=== PATIENT | male | born 1970 | race Caucasian/White ===

== ENCOUNTER → 2023-10-30 13:53 | Outpatient (REF) | payer OTHER, SELFPAY ==
--- NOTE | 2023-10-30 13:59 | CA_ITS ---
Transthoracic Echocardiogram Patient (Last, First, Middle): Andrea Garcia, Gender: Male Date of : 1970 Age: 53 Procedure Date: 10/30/2023 Procedure Type: Transthoracic Echocardiogram Location: OP Height: 167.64 cm Weight: 83.92 kg BSA: 1.93 m2 Heart Rate: 72 bpm BP: 122 / 65 mmHg Cloth Inspector: CARMELO Referring MD: Julia Egan DO Squad Leader: Bill Nina MD Symptoms: I48.91 SUPRAVENTRICULAR HEART BEAT PREMATURE, PRECORDIAL PAIN R07.2 Study Quality: Adequate ECG Rhythm: Frequent ventricular premature beats Conclusions: - Essentially normal study Findings Left Ventricle Normal left ventricular size, thickness, and systolic function. The visually estimated ejection fraction is between 55-60%. Spectral Doppler is indicative of a normal filling pattern. Peak GLS is -19.0%, within normal limits. Right Ventricle Normal right ventricular cavity size and systolic function. Atria Both atria are normal in size. There is no evidence of interatrial shunt. Aortic Valve Normal aortic valve structure and function. There is no aortic valve stenosis. There is no aortic valve regurgitation. Mitral Valve Normal mitral valve structure and function. There is trace mitral valve regurgitation. There is no mitral valve stenosis. Pulmonic Valve The pulmonic valve is likely normal. There is trace pulmonic valve regurgitation. Tricuspid Valve Normal tricuspid valve structure. Tricuspid regurgitation envelope is inadequate for calculation of right ventricular systolic pressure. Normal right atrial pressure. Great Vessels All visible segments of the aorta are normal in size. The pulmonary artery was not well visualized. Venous The inferior vena cava is normal in size and collapses greater than 50% with inspiration. Pericardium/Pleural There is no evidence of pericardial effusion. Prior Study Comparison No prior study available for comparison. Measurements 2D Linear Measurements IVSd: 1.09 0.6-0.9/0.6-1.0 cm LVIDd: 4.79 3.9-5.3/4.2-5.9 cm LVIDd Index: 2.48 2.4-3.2/2.2-3.1 cm/m2 LVIDs: 2.63 2.0-3.6 cm LVPWd: 0.94 0.7-1.1 cm LA Diam: 4.00 2.7-3.8/3.0-4.0 cm LAIDs Index: 2.07 1.5-2.3 cm/m2 LV Mass: 215.75 67-162/88-224 g LV Mass Index: 111.79 43-95/49-115 g/m2 LVOT Diam: 2.20 3.0+(-)1.3 cm 2D Systolic Function EF 4C: 58.30 >55% EF 2C: 58.60 >55% EF BiP: 58.50 >55% Mitral Valve MV Pk E: 0.86 MV PK A: 0.67 MV Decel Time: 123.00 E/A: 1.30 E'Lateral: 12.90 E'Medial: 10.10 E/E' Med: 8.50 E/E' Lat: 6.70 PHT: 36.00 MVA PHT: 6.11 Decel Sampson: 6.99 Aortic Valve AoV Pk Jesus: 1.21 AoV Mn Jesus: 0.87 AoV VTI: 0.25 AoV Pk Grad: 6.00 Aov Mn Grad: 3.00 DIANA Cont.VTI: 2.79 LVOT LVOT Pk Jesus: 0.88 LVOT Mn Jesus: 0.63 LVOT VTI: 0.18 LVOT Pk Grad: 3.00 LVOT Mn Grad: 2.00 LVOT Diam: 2.20 LVOT Area: 3.80 Diastolic Function MV Pk E: 0.86 MV Pk A: 0.67 E/A: 1.30 E'Medial: 10.10 E/E' Med: 8.50 E' Laterial: 12.90 E/E' Lat: 6.70 Right Ventricle TAPSE (mm): 30.00 TVS' Jesus: 13.20 Tricuspid Valve RA Press: 3.00 Great Vessels Aorta Sinus of Valsalva: 3.20 2.0-3.5 cm Ao Asc: 3.30 2.1-3.4 cm Pulmonary Valve PV Pk Jesus: 0.92 Peak PV Grad: 3.00 Updated in Other Vendor System with Status of Final Bill Nina MD electronically signed on 10/30/2023 4:49:43 PM with status of Final
== END ==
LOC: HO.CARD 13:53
PROVIDERS: Visit Provider Family Medicine
DX: R07.2 Precordial pain (principal); I49.1 Atrial premature depolarization
CPT/HCPCS: 93306; 93356

== ENCOUNTER → 2023-10-30 13:59 | Outpatient (BNV) | payer OTHER, SELFPAY | PROVIDERS: Visit Provider Internal Medicine Cardiovascular Disease | DX: I48.91 Unspecified atrial fibrillation (principal) | CPT/HCPCS: 93306; 93356 ==

== ENCOUNTER → 2024-01-01 10:17 | Outpatient (REF) | payer OTHER, SELFPAY ==
--- NOTE | 2024-01-01 10:20 | HM_ITS ---
* Total monitoring time 1 day. * Underlying rhythm is sinus. Average ventricular rate 75/Min. * Frequent supraventricular ectopy with a burden of 9.3%. * Rare ventricular ectopy. * No significant pauses or AV blocks. * No patient markers. * Diary not submitted. MTDD
== END ==
LOC: HO.CARD 10:17
PROVIDERS: Visit Provider Family Medicine
DX: I49.1 Atrial premature depolarization (principal)
CPT/HCPCS: 93225

== ENCOUNTER → 2024-01-01 10:20 | Outpatient (BNV) | payer OTHER, SELFPAY | PROVIDERS: Visit Provider Internal Medicine | DX: I47.10 Supraventricular tachycardia, unspecified (principal) | CPT/HCPCS: 93227 ==

== ENCOUNTER 2024-01-30 12:41 | Outpatient (AMB) | payer OTHER, SELFPAY ==
--- NOTE | 2024-01-30 12:50 | A.OFFVIS_ITS ---
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 He is a pleasant 53-year-old male who about couple months ago started developing left-sided chest pain which she describes as sharp discomfort radiating left arm. He said he has difficulty moving his left arm. Symptoms usually happen at the end of the shift, he works septal to a.m. at a [employer]. Says symptoms could be related to stress. Symptoms last for few minutes. Symptoms have continued to happen but more intense couple months ago. At that time was diagnose with hypertension started on lisinopril therapy. Despite antihypertensive therapy continues to have symptoms. Symptoms are not clearly exertional in nature. He also had end of the shift sats noticing fluttering in the chest. That had led to further workup. He was noted to have irregular pulse during office visit and subsequently had a Holter monitor which are frequent PACs about 9.3% burden. No other significant arrhythmias. Echocardiogram at shown normal structure of the heart. He comes for further evaluation of the symptoms and findings of test results. He denies any shortness of breath. He has family history of cardiovascular issues in his dad. [facility] Medical History PAC (premature atrial contraction) HTN (hypertension) Family History Father No problems noted. Social History Household Members: Spouse Alcohol intake: never Patient Tobacco Use Status: Never used Tobacco Review of Systems Const Denies chills, Denies fatigue, Denies fever(s), Denies frequent falls, Denies weakness, Denies weight gain and Denies weight loss ENT Denies dizziness Card Denies chest pain, Denies leg edema, Denies lightheadedness, Denies palpitations, Denies dyspnea, Denies dyspnea on exertion and Denies orthopnea Resp Denies cough, Denies dyspnea and Denies dyspnea on exertion GI Denies bloating and Denies change in bowel habits Musc Denies muscle weakness, Denies numbness and Denies tingling Neuro Denies dizziness, Denies frequent falls, Denies numbness, Denies tingling and Denies weakness Endo Denies fatigue and Denies palpitations Physical Exam Vital Signs: Last Vital Signs Pulse 81 01/30/24 12:52 BP 110/70 01/30/24 12:52 BMI result Body Mass Index 29.2 Const General: cooperative, comfortable, no acute distress, alert, awake and Physically active Nutritional Appearance: average body habitus Orientation/consciousness: patient oriented x3 Limitations: no limitations HEENT Head: Yes normocephalic and Yes atraumatic Neck Neck: Yes trachea midline, Yes supple and Yes no JVD Resp Effort & Inspection: normal respiratory effort Auscultation: clear to auscultation bilaterally Cardio Jugular venous distension: no JVD Rate: regular rate Rhythm: abnormal rhythm with ectopic beats Heart sounds: S1 normal heart sound present, S2 normal heart sound present, no click, no gallops, no murmurs and no rubs GI Auscultation: normal bowel sounds Skin General skin exam: no rashes or lesions noted Neuro General: patient oriented x3 and no focal motor deficits Extrem General: Yes no clubbing, cyanosis or edema Psych Appearance: grossly normal Office Procedures EKG Details: EKG shows normal sinus rhythm with PACs [id number], Complete Assessment & Plan Assessment & Plan (1) Atypical chest pain: Code(s): R07.89 - Other chest pain Category: Medical Plan: Atypical chest pain in this middle-aged man with risk factor of hypertension family history. Unknown lipid status. Will obtain a left from your office. Symptoms happen with stress. Could represent myocardial ischemia. This is suggest a treadmill stress test to evaluate for myocardial ischemia. Further workup and management based on the findings. He understands management well. (2) HTN (hypertension): Code(s): I10 - Essential (primary) hypertension Category: Medical Plan: Hypertension recently diagnose, currently on lisinopril therapy. Blood pressure is well optimized on lisinopril. Continue the. Importance of blood pressure control was discussed. Advised to blood pressure at home maintain a log. Goal blood pressure closer to 120/80. Low-salt diet was discussed. Maintain heart healthy lifestyle. If his stress test is negative, would pursue coronary calcium score for screening for coronary atherosclerosis. He understands and agrees. (3) PAC (premature atrial contraction): Code(s): I49.1 - Atrial premature depolarization Category: Medical Plan: Frequent PACs. We discussed pathophysiology of PACs. He does drink a lot of soda with caffeine. Advised to reduce his caffeine intake and participate in stress mitigation strategies. If despite that he continues to have continue symptoms can consider beta-yvonne therapy. Risk of development of atrial fibrillation in the future was discussed. He understands agrees. Follow up in the clinic in 2 months time. Orders: Orders CT Coronary Calcium Score 6 Weeks I10 - Essential (primary) hypertension CA stress test Today R07.89 - Other chest pain Coding Level of Care Code New Pt Level 4 (69723) Diagnoses Atypical chest pain R07.89 HTN (hypertension) I10 PAC (premature atrial contraction) I49.1 CPT Codes EKG - CPT: [id number], Complete ([id number])
[2024-01-30 12:52] VITALS: BP 110/70; PULSE 81; BMI 29.2
== END 2024-01-30 13:22 | disposition home or self-care (01) ==
PROVIDERS: PCP Family Medicine; Visit Provider Internal Medicine Cardiovascular Disease
DX: I10 Essential (primary) hypertension (principal); I49.1 Atrial premature depolarization; R07.89 Other chest pain
CPT/HCPCS: 93010; 99214

== ENCOUNTER → 2024-01-30 12:41 | Outpatient (BNVA) | payer OTHER, SELFPAY | PROVIDERS: PCP Family Medicine; Visit Provider Internal Medicine Cardiovascular Disease | DX: R07.89 Other chest pain (principal); I10 Essential (primary) hypertension; I49.1 Atrial premature depolarization | CPT/HCPCS: 93005 ==

== ENCOUNTER → 2024-02-09 09:14 | Outpatient (REF) | payer OTHER, SELFPAY ==
--- NOTE | 2024-02-09 09:16 | CA_ITS ---
Acquisition Time: 2024-02-09 09:26:33 Total Exercise Time: 00:10:27 Test Indications: CHEST PAIN Medications: Protocol: DIMITRY Max HR: 139 BPM 82% of Pred: 168 BPM Max BP: 154/086 mmHG Max Work Load: 10.4 METS Exericse stress test exercise 10 min 27 sec of Dimitry protocol (stage 3 held, manually increase) 83% MPHR,with request to stop due to back pain and couldnt go faster, with mild SOB, no chest discomfort, with isdolated PACs and PVCs, with normotensive response to exercise, without EKG changes. Test reviewed with Dr. Diaz. Referred By: Bill Nina Overread By: Zamzam Ferro
== END ==
LOC: HO.CARD 09:14
PROVIDERS: PCP Family Medicine; Visit Provider Internal Medicine Cardiovascular Disease
DX: R07.89 Other chest pain (principal)
CPT/HCPCS: 93017

== ENCOUNTER → 2024-02-09 09:16 | Outpatient (BNV) | payer OTHER, SELFPAY | PROVIDERS: PCP Family Medicine; Visit Provider Nurse Practitioner | DX: R06.02 Shortness of breath (principal); I49.1 Atrial premature depolarization; I49.3 Ventricular premature depolarization | CPT/HCPCS: 93016; 93018 ==

== ENCOUNTER 2024-04-15 14:19 | Outpatient (AMB) | payer OTHER, SELFPAY ==
[2024-04-15 14:26] VITALS: BP 120/68; PULSE 78; BMI 28.8
--- NOTE | 2024-04-15 14:26 | A.OFFVIS_ITS ---
Vital Signs 04/15/24 14:26 Height 5 ft 6 in Weight 178 lb 9.191 oz BMI 28.8 BP 120/68 Blood Pressure Location Lt brachial Position Sitting Pulse 78 Pulse Source Pulse Oximeter Intake Visit Reasons: s/p ett ? calcium score if ordered Allergies latex Allergy (Severe, Verified 01/30/24 12:53) Hives Medication List - Last Reconciled 04/15/24 by Bill Nina MD albuterol sulfate ER 4 mg PO Q12H lisinopril 10 mg PO DAILY HPI Comments Details: Andrea comes for follow-up after testing. He was stress test at high workload was without any significant arrhythmias. Did have isolated PACs and PVCs during the treadmill stress test. EKG was negative for ischemia. Subsequently underwent a coronary calcium score which shows a low coronary calcium score at 1.9 in the RCA distribution. He is taking his medications. Last LDL of 98 mg/dL with normal CRP. [facility] Medical History PAC (premature atrial contraction) HTN (hypertension) Family History Father No problems noted. Social History Household Members: Spouse Alcohol intake: never Patient Tobacco Use Status: Never used Tobacco Review of Systems Const Denies weakness ENT Denies dizziness Card Denies chest pain, Denies chest pain with activity, Denies syncope, Denies rapid heart rate, Denies pedal edema, Denies edema, Denies leg edema, Denies lightheadedness, Denies palpitations, Denies dyspnea, Denies dyspnea on exertion and Denies orthopnea Resp Denies cough, Denies dyspnea and Denies dyspnea on exertion GI Denies hematochezia and Denies change in stool character Musc Denies abnormal gait, Denies muscle cramps, Denies muscle weakness, Denies numbness, Denies radiating pain into limb and Denies tingling Neuro Denies abnormal gait, Denies dizziness, Denies syncope, Denies numbness, Denies tingling and Denies weakness Endo Denies palpitations Physical Exam Vital Signs: Last Vital Signs Pulse 78 04/15/24 14:26 BP 120/68 04/15/24 14:26 BMI result Body Mass Index 28.8 Const General: cooperative, comfortable, no acute distress, alert, awake and Physically active Nutritional Appearance: average body habitus Orientation/consciousness: patient oriented x3 Limitations: no limitations HEENT Head: Yes normocephalic and Yes atraumatic Neck Neck: Yes trachea midline, Yes supple and Yes no JVD Resp Effort & Inspection: normal respiratory effort Auscultation: clear to auscultation bilaterally Cardio Jugular venous distension: no JVD Rate: regular rate Rhythm: abnormal rhythm with ectopic beats Heart sounds: S1 normal heart sound present, S2 normal heart sound present, no click, no gallops, no murmurs and no rubs GI Auscultation: normal bowel sounds Skin General skin exam: no rashes or lesions noted Neuro General: patient oriented x3 and no focal motor deficits Extrem General: Yes no clubbing, cyanosis or edema Psych Appearance: grossly normal Assessment & Plan Assessment & Plan (1) PAC (premature atrial contraction): Code(s): I49.1 - Atrial premature depolarization Category: Medical Plan: Isolated PACs and PVCs which are symptomatic at this point time although he is not very bothered by symptoms. He gets lightheaded during the daytime when he has these symptoms happening. I have advised him to increase his fluid intake. I would not necessarily pursue pharmacotherapy at this point time. Avoidance of stimulants was discussed. Stress mitigation strategies were discussed. (2) HTN (hypertension): Code(s): I10 - Essential (primary) hypertension Category: Medical Plan: Hypertension with well optimized blood pressure current point time. Minimally elevated coronary calcium which is low risk. This was discussed with him. His LDL and CRP are within acceptable limits. I have advised him to continue to pursue aggressive lifestyle modification. Improving his diet and regular p hysical activity was discussed. I would suggest a repeat coronary calcium score in couple years to see if the significant increase in burden of coronary calcification that would justify aggressive lipid modification as there was no significant benefit with statin therapy at this point in time. This was discussed with him. Will follow up in the clinic in 2 years time, sooner p.r.n.. Thank you for allowing me to partake in his care Coding Level of Care Code Est Pt Level 4 (18197) Complex EM visit Add On G2211 Diagnoses PAC (premature atrial contraction) I49.1 HTN (hypertension) I10
--- OUTSIDE RECORDS SUMMARY | 2024-04-17 16:07 | XMS_ITS ---
Author Organization [facility], [facility] Address [address], [place] [id number] Care Team Providers Care Communications Engineer Name Role Phone CHRISTINE CLARK Primary Care Provider Jacey Hood [phone] ALLERGIES Allergen (clinical drug ingredient) Drug/Non Drug Allergy documented on EMR Reaction Allergy Type Onset Date Status Latex Latex Hives/Rash Allergy Active REASON FOR VISIT f/u 6 mnth check-in SOCIAL HISTORY Tobacco Use: Social History Observation Description Date Details (start date - stop date) Never Smoker NA - NA Sex Assigned At : Social History Observation Description Sex Assigned At Male Household Question Answer Notes Marital status: Number of adults in household: 2 Number of children in household: 2 Tobacco Use/Smoking Question Answer Notes Tobacco use: nonsmoker Section Notes: Lives in [place], [place] with & 2 daughters. Encounters Encounter Location Date Provider Diagnosis [address] [id number] 03/15/2023 Jacey Hood PLAN OF TREATMENT No Information Progress Notes * ODALYS BUNCHDOB:1970 (53 yo M)Acc No.[id number]:03/15/2023 Progress Note Patient:??ODALYS BUNCH Provider:??Jacey Hood DNP :1970?Age:52 Y?Sex:Jayshree mccarthy Date:03/15/2023 Phone: Address:[address], [id number] Pcp:CHRISTINE CLARK Subjective: * Chief Complaints: * ?1. F/u 6 mnth check-in . * HPI: ?Patient Care Team:? Providers/Specialists:. * Medical History:??Asthma, Ki dney stones, Fx Rt. leg, Eczema. 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 * Family History:??Father: manisha ve, Heart disease.??Mother: alive, No known health concerns.??Maternal Grandfather: , Colon CA.??Brother: alive.??Sister: alive.??1 brother(s) , 1 sister(s) - healthy. 2 daughter(s) - healthy. .?? * Social History:?Tobacco Use:??Tobacco Use/Smoking??Tobacco use:??nonsmoker.?Drugs/Alcohol:??Do you smoke marijuana?: Denies. Do you drink alcohol?: No. 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 ?Lives in [place], [place] with & 2 daughters. * Allergies:??Latex: Hives/Gee h - Allergy. Objective: Assessment: Plan: * Treatment: * Preventive Medicine:?Last CPE: Over 10 yrs ago; 07/07/2022 Colonoscopy: Had one in his 40's- [facility] GI Endoscopy: No Covid Vac: Yes Flu Vac: No PV: No. * Billing Information: * Visit Code:?? * Procedure Codes:?? * Sign off status: Pending * Provider:??Jacey Hood DNP Date:??12/2022 History and Physical Notes * HPI (History of Present Illness) Category Sub-Category Detail Notes Category Not es Patient Care Team Providers/ Specialists:
--- OUTSIDE RECORDS SUMMARY | 2024-04-17 16:07 | XMS_ITS ---
Author Organization [facility], [facility] Address [address] [place] [id number] Care Team Providers Care Sandstone Splitter Name Role Phone CHRISTINE CLARK Primary Care Provider [phone] Jacey Hood [phone] REASON FOR VISIT CPE SOCIAL HISTORY Sex Assigned At : Social History Observation Description Sex Assigned At Male Encounters Encounter Location Date Provider Diagnosis [facility], [facility] [address] [facility] [address] [place] [phone] 09/04/2023 Jacey Hood PLAN OF TREATMENT No Information Progress Notes * ODALYS BUNCHDOB:1970 (53 yo M)Acc No.[id number]:09/04/2023 Progress Note Patient:??ODALYS BUNCH Provider:??Jacey Hood DNP :1970?Age:53 Y?Sex:Ma le Date:09/04/2023 Phone: Address:[address] [id number] Pcp:CHRISTINE CLARK Subjective: * Chief Complaints: * ?1. CPE. * Medical History:?? Objective: Assessment: Plan: * Treatment: Care Plan: * Problems:?? * Billing Information: * Visit Code:?? * Procedure Codes:?? * Sign off status: Pending * Provider:??Jacey Hood DNP Date:??
--- OUTSIDE RECORDS SUMMARY | 2024-04-17 16:07 | XMS_ITS ---
Author Organization [facility], [facility] Address [address] [place] [phone] Care Team Providers Care Lead Systems Engineer Name Role Phone CHRISTINE CLARK Primary Care Provider Jacey Hood [phone] REASON FOR VISIT CPE SOCIAL HISTORY Sex Assigned At : Social History Observation Description Sex Assigned At Male Encounters Encounter Location Date Provider Diagnosis [facility], [facility] [address] [facility] [address] [place] [phone] 12/07/2023 Jacey Hood PLAN OF TREATMENT No Information Progress Notes * ODALYS BUNCHDOB:1970 (53 yo M)Acc No.[id number]:12/07/2023 Progress Note Patient:??ODALYS BUNCH Provider:??Jacey Hood DNP :1970?Age:53 Y?Sex:Ma le Date:12/07/2023 Phone: Address:[address] [id number] Pcp:CHRISTINE CLARK Subjective: * Chief Complaints: * ?1. CPE. * Medical History:?? Objective: Assessment: Plan: * Treatment: Care Plan: * Problems:?? * Billing Information: * Visit Code:?? * Procedure Codes:?? * Sign off status: Pending * Provider:??Jacey Hood DNP Date:??05/2023
--- OUTSIDE RECORDS SUMMARY | 2024-04-17 16:07 | XMS_ITS | Patient Health Record ---
Author Organization [facility] Address [address] [place] [id number] Care Team Providers Care Industrial Safety And Health Manager Name Role Phone CHRISTINE CLARK Primary Care Provider Erwin Jacey Unavailable [phone] ALLERGIES Allergen (clinical drug ingredient) Drug/Non Drug Allergy documented on EMR Reaction Allergy Type Onset Date Status Latex Latex Hives/Rash Allergy Active REASON FOR REFERRAL No Information MEDICATIONS Medication SIG (Take, Route, Frequency, Duration) Notes Start Date End Date Status Albuterol Sulfate HFA 108 (90 Base) MCG/ACT INHALE 1 PUFF BY MOUTH EVERY 6 HOURS NEEDED for 30 Active SOCIAL HISTORY Tobacco Use: Social History Observation Description Date Details (start date - stop date) Never Smoker NA - NA Sex Assigned At : Social History Observation Description Sex Assigned At Male Household Question Answer Notes Marital status: Number of adults in household: 2 Number of children in household: 2 Tobacco Use/Smoking Question Answer Notes Tobacco use: nonsmoker Section Notes: Lives in [place], [place] with & 2 daughters. Lives in [place], [place] with & 2 daughters. Lives in [place], [place] with & 2 daughters. Lives in [place], [place] with & 2 daughters. Lives in [place], [place] with & 2 daughters. PROBLEMS Problem Type ICD Code Onset Dates Problem Status W/U Status Risk SNOMED Code Notes Problem Other chronic pain (G89.29) Active confirmed 91553772 Problem Lumbago with sciatica, right side (M54.41) Active confirmed 572560812 Problem Abnormal electrocardiogram [ECG] [EKG] (R94.31) Active confirmed 889401311 Problem Back muscle spasm (M62.830) Active confirmed 851044364 Problem Obesity (BMI 30-39.9 ) (E66.9) Active confirmed 583255534 Problem Mild intermittent asthma, unspecified whether complicated (J45.20) Active confirmed 028972712 Problem Heart palpitations (R00.2) Active confirmed 16360647 Problem Eosinophil count raised (R89.8) Active confirmed 200988270 Encounters Encounter Location Date Provider Diagnosis [address] [id number] 09/04/2023 Jacey Hood [address] [phone] 12/07/2023 Jacey Hood PLAN OF TREATMENT Pending Test Test Name Order Date Echocardiogram 07/07/2022 Colonoscopy 09/14/2022 Electrocardiogram (EKG) 07/07/2022 24 Holter 07/07/2022 Future Test Test Name Order Date TESTOSTERONE, FREE, B[place]AIL[place]OT [place], [place] (03207) 07/11/2022 CBC (INCLUDES DIFF/PLT) (6399) PSA (FREE AND TOTAL) (79453) 07/11/2022 Insurance Providers Payer Name Payer Address Payer Phone Subscriber Number Group Number Insured Name Patient Relationship to Insured Coverage Start Date Coverage End Date [employer] [address] [place] [phone] [id number] ODALYS BUNCH Self - patient is the insured MEDICAL (GENERAL) HISTORY Medical History History ICD Code Asthma Kidney stones Fx Rt. leg Eczema Surgical History Surgery Date(Month/Year) Lumbar surgery (blown disc) Cervical surgery (disc) Hand surgery - Lt. hand 3 finger amputat ion
== END 2024-04-15 14:43 | disposition home or self-care (01) ==
PROVIDERS: PCP Family Medicine; Visit Provider Internal Medicine Cardiovascular Disease
DX: I49.1 Atrial premature depolarization (principal); I10 Essential (primary) hypertension
CPT/HCPCS: 99214; G2211

== ENCOUNTER → 2024-04-15 14:19 | Outpatient (BNVA) | payer OTHER, SELFPAY | PROVIDERS: PCP Family Medicine; Visit Provider Internal Medicine Cardiovascular Disease ==